=== PATIENT | male | born 1955 | race Caucasian/White ===

== ENCOUNTER 2019-03-16 00:45 | Emergency (ER) | payer BC ==
[~2019-03-16] VITALS: Ht 172.7 cm; Wt 78.0 kg
[2019-03-16 00:53] VITALS: Ht 172.7 cm; Wt 78.0 kg
[2019-03-16] MEDS ORDERED: ASPIRIN 325 MG TAB PO STA (01:28)
[2019-03-16] MEDS ORDERED: HEPARIN 1000 UNITS/ML 10 ML INJ IV STA (01:28)
--- NOTE | 2019-03-16 01:33 | ERD ---
ER Documentation Chief Complaint Chief Complaint BIB SELF, CC: LEFT ANKLE PAIN FROM FALL X 1 WEEK AGO, DIZZINESS DURING FALL HPI This is a 63-year-old male who is on vacation and Sunday he said that he got out of the shower and felt very dizzy and was syncopal. He said he does not recall a feeling of falling or hitting the floor but then woke up on the floor and his friend helped him to the bed. He said he had off-and-on chest pressure 2 days in a row after this. He said that it did seem a bit positional there was a sharp pain at times and sometimes pressure. Patient says he has had no chest pain over the past 2 days. He said he flew in back to [facility] and his daughter brought him here to get checked out. He says he is felt pretty normal over the past 2 days. Patient is not sure if he has an medical problems and thinks he might be diabetic but is not sure ROS All systems reviewed and are negative except as per history of present illness. Allergies Allergies: Coded Allergies: No Known Allergy (Unverified , 03/16/19) PMhx/Soc Medical and Surgical Hx: pt denies Medical Hx, pt denies Surgical Hx Hx Alcohol Use: No Hx Substance Use: No Hx Tobacco Use: No Smoking Status: Never smoker FmHx Family History: No coronary disease Physical Exam Vitals Vital Signs Date Temp Pulse Resp B/P (MAP) Pulse Ox O2 O2 Flow FiO2 Time Delivery Rate 03/16/19 98.0 80 20 111/69 100 Room Air 01:40 (83) 03/16/19 98.2 84 20 116/102 100 Room Air 01:24 (107) 03/16/19 98.2 82 22 125/82 100 Room Air 00:54 (96) 03/16/19 98.2 85 19 119/73 100 00:53 (88) Physical Exam Const: Well-developed, well-nourished Head: Atraumatic, normocephalic Eyes: Normal Conjunctiva, PERRLA, EOMI, normal sclera, no nystagmus ENT: Normal External Ears, Nose and Mouth, moist mucus membranes. Neck: Full range of motion. No meningismus, no lymphadenopathy. Resp: Clear to auscultation bilaterally, no wheezing, rhonchi, rales Cardio: Regular rate and rhythm, no murmurs, S1 S2 present Abd: Soft, non tender x 4, non distended. Normal bowel sounds, no guarding or rebound, no pulsitile abdominal masses or bruits Skin: No petechiae or rashes, no ecchymosis , no maculopapular rash Back: No midline or flank tenderness Ext: No cyanosis, or edema, FROM x 4, normal inspection, neurovasc ularly intact x 4 Neur: Awake and alert, STR 5/5 x 4, sensation intact x 4, no focal findings, cerebellum intact Psych: Normal Mood and Affect Result Diagram: 03/16/19 0123 Results 24 hrs Laboratory Tests Test 03/16/19 01:23 White Blood Count 8.6 10^3/ul Red Blood Count 4.30 10^6/ul Hemoglobin 12.8 g/dl Hematocrit 38.6 % Mean Corpuscular Volume 89.8 fl Mean Corpuscular Hemoglobin 29.8 pg Mean Corpuscular Hemoglobin Concent 33.2 g/dl Red Cell Distribution Width 13.2 % Platelet Count 184 10^3/UL Mean Platelet Volume 12.0 fl Immature Granulocytes % 0.600 % Neutrophils % 64.5 % Lymphocytes % 17.9 % Monocytes % 15.5 % Eosinophils % 1.2 % Basophils % 0.3 % Nucleated Red Blood Cells % 0.0 /100WBC Immature Granulocytes # 0.050 10^3/ul Neutrophils # 5.5 10^3/ul Lymphocytes # 1.5 10^3/ul Monocytes # 1.3 10^3/ul Eosinophils # 0.1 10^3/ul Basophils # 0.0 10^3/ul Nucleated Red Blood Cells # 0.0 10^3/ul Current Medications Medications Dose Sig/Hansa Start Time Status Last (Trade) Ordered Route PRN Stop Time Admin Dose Reason Admin Aspirin 325 mg ONCE STAT 03/16/19 DC 03/16/19 (Aspirin) PO 01:28 01:39 03/16/19 01:30 Heparin 5,000 unit ONCE STAT 03/16/19 DC Sodium IV 01:28 (Porcine) 03/16/19 01:30 (Heparin (1000 Units/ml)) Procedures/MDM EKG: Rate/Rhythm: Normal sinus rhythm with right bundle branch block with ST elevation in V2 V3 and V4 with Q waves in those leads QRS, ST, QT: NORMAL [place], QRS, QT] Impression: Acute IN EKG: Rate/Rhythm: Normal sinus rhythm with right bundle branch block with ST elevation in V2 V3 and V4 with Q waves in those leads QRS, ST, QT: NORMAL [place], QRS, QT] Impression: Acute IN Patient was given aspirin 325 and heparin 5000 units IV. Patient says he has no pain whatsoever, or any other symptoms. Patient's EKG is very suspicious for a STEMI and I spoke with [facility] ER and sending the text message with the patient's EKGs. 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 The [facility] is down at this time at this hospital and this is the reason for transfer. Regardless the patient will likely need a cath due to his abnormal EKG. Critical Care Time: 30 minutes Treatments/Evaluations: Close monitoring and treatment of unstable vital signs, cardiorespiratory, and neurologic status, while maintaining tight balance of fluid, respiratory, and cardiac interventions. This time includes discussing the case with the patient and the patient's family. This time does not include all procedures stated elsewhere in this record. This time also includes reviewing old records, labs and radiological studies. This time includes examining and re- examining the patient. Additionally, this time also includes arranging care with admitting and consulting physicians. ER doctor from [facility] call me back at [phone] Rae the windows server specialist reviewed the EKGs and is going to set the patient in transfer and go to the [facility] now we are sending him via [phone] Departure Diagnosis: Primary Impression: ST elevation myocardial infarction (STEMI) Involved coronary artery: other anterior wall coronary artery Qualified Codes: I21.09 - ST elevation (STEMI) myocardial infarction involving other coronary artery of anterior wall Condition: Stable JANET GUTIERREZ DO Mar 16, 2019 01:33
[2019-03-16 02:01] VITALS: BP 126/65; PULSE 81; RESP 19
== END 2019-03-16 04:01 | disposition short-term general hospital (02) ==
LOC: E/R 00:45
DX: I21.09 ST elevation (STEMI) myocardial infarction involving other coronary artery of anterior wall (principal)
CPT/HCPCS: 71045; 73610; 80048; 84484; 85025; 93005; J1644; 36415; 96374